=== PATIENT | female | born 1990 | race Hispanic/Latino ===

== ENCOUNTER 2018-02-08 22:39 | Emergency (ER) | payer SELFPAY ==
[2018-02-08 23:18] LABS: BASOPHILS % (AUTO) 0.6 % (0.0-5.0); HEMATOCRIT 36.9 % (36-48); LYMPHOCYTES % (AUTO) 31.8 % (21.0-51.0); MEAN CORPUSCULAR HEMOGLOBIN 26.6 pg (27.0-33.0); MEAN CORPUSCULAR HGB CONC 33.6 g/dL (32.0-36.0); MEAN CORPUSCULAR VOLUME 78.9 fL (79-99); MONOCYTES % (AUTO) 5.3 % (3.0-13.0); NEUTROPHILS % (AUTO) 61.3 % (40.0-77.0); PLATELET COUNT (AUTO) 271 K/uL (130-400); RED BLOOD CELL COUNT(AUTO) 4.68 MIL/uL (4.00-5.50); RED CELL DISTRIBUTION WIDTH 13.4 % (11.0-15.5); WHITE BLOOD COUNT (AUTO) 7.7 K/uL (4.8-10.8)
[2018-02-08 23:24] LABS: HCG,QUAL RESULT NEGATIVE (NEGATIVE)
[2018-02-08 23:27] LABS: AMPHET/METH SCREEN,URINE NEGATIVE (NEGATIVE); BARBITURATE SCREEN, URINE NEGATIVE (NEGATIVE); BENZODIAZEPINES SCREEN,URINE NEGATIVE (NEGATIVE); CANNABINOID SCREEN,URINE NEGATIVE (NEGATIVE); COCAINE SCREEN,URINE NEGATIVE (NEGATIVE); OPIATE SCREEN,URINE NEGATIVE (NEGATIVE); PHENCYCLIDINE SCREEN,URINE NEGATIVE (NEGATIVE)
[2018-02-08 23:29] LABS: CREATININE 0.6 mg/dL (0.5-1.5); POTASSIUM 3.5 mmol/L (3.5-5.1)
== END 2018-02-09 00:21 | disposition home or self-care (01) ==
LOC: EDH 22:39
DX: R20.2 Paresthesia of skin (principal)
CPT/HCPCS: 36415; 80048; 80305; 81025; 85025

== ENCOUNTER 2018-05-20 16:58 | Emergency (ER) | payer BC, SELFPAY ==
[2018-05-20] MEDS ORDERED: ONDANSETRON ODT 4 MG TAB ONE (17:28)
[2018-05-20 18:10] LABS: BILIRUBIN,URINE Negative (NEGATIVE); COLOR,URINE Yellow (YELLOW); GLUCOSE, URINE (UA) Negative (NEGATIVE); KETONES,URINE Trace mg/dL (NEGATIVE); LEUKOCYTE ESTERASE ,URINE Small (NEGATIVE); NITRATE,URINE Negative (NEGATIVE); OCCULT BLOOD,URINE Negative (NEGATIVE); PROTEIN,URINE Negative (NEGATIVE)
[2018-05-20 18:11] LABS: HCG,QUAL RESULT NEGATIVE (NEGATIVE)
[2018-05-20 18:12] LABS: APPEARANCE,URINE Hazy (CLEAR)
[2018-05-20 18:52] LABS: BACTERIA,URINE Rare /HPF (None Seen); MUCUS,URINE Many LPF (None Seen); RBC,URINE None Seen /HPF (0-1); WBC,URINE 0-1 /HPF (0-1)
== END 2018-05-20 18:41 | disposition home or self-care (01) ==
LOC: EDH 16:58
DX: N39.0 Urinary tract infection, site not specified (principal)
CPT/HCPCS: 81001; 81025

== ENCOUNTER 2018-08-05 15:37 | Emergency (ER) | payer BC, MEDICAID ==
[2018-08-05 16:11] LABS: BASOPHILS % (AUTO) 0.8 % (0.0-5.0); EOSINOPHILS % (AUTO) 1.4 % (0.0-8.0); HEMATOCRIT 33.3 % (36-48); LYMPHOCYTES % (AUTO) 26.1 % (21.0-51.0); MEAN CORPUSCULAR HEMOGLOBIN 26.8 pg (27.0-33.0); MEAN CORPUSCULAR HGB CONC 33.5 g/dL (32.0-36.0); MEAN CORPUSCULAR VOLUME 79.8 fL (79-99); MONOCYTES % (AUTO) 5.6 % (3.0-13.0); NEUTROPHILS % (AUTO) 66.1 % (40.0-77.0); NUCLEATED RED BLOOD CELLS 0.1 % (0.0-0.19); PLATELET COUNT (AUTO) 229 K/uL (130-400); RED BLOOD CELL COUNT(AUTO) 4.17 MIL/uL (4.00-5.50); RED CELL DISTRIBUTION WIDTH 14.2 % (11.0-15.5); WHITE BLOOD COUNT (AUTO) 6.2 K/uL (4.8-10.8)
[2018-08-05 16:53] LABS: APPEARANCE,URINE Clear (CLEAR); BILIRUBIN,URINE Negative (NEGATIVE); COLOR,URINE Yellow (YELLOW); GLUCOSE, URINE (UA) Negative (NEGATIVE); KETONES,URINE Negative (NEGATIVE); LEUKOCYTE ESTERASE ,URINE Small (NEGATIVE); NITRATE,URINE Negative (NEGATIVE); OCCULT BLOOD,URINE Negative (NEGATIVE); PROTEIN,URINE Negative (NEGATIVE)
[2018-08-05 17:08] LABS: BACTERIA,URINE Rare /HPF (None Seen); RBC,URINE None Seen /HPF (0-1); SQUAMOUS EPITHELIAL CELL,UR 0-2 /HPF (0-2)
== END 2018-08-05 17:58 | disposition home or self-care (01) ==
LOC: EDH 15:37
DX: O20.0 Threatened abortion (principal); Z3A.01 Less than 8 weeks gestation of pregnancy
CPT/HCPCS: 36415; 76801; 81001; 84702; 85025

== ENCOUNTER 2018-11-27 22:45 | Emergency (ER) | payer MEDICAID | END 2018-11-27 23:29 | disposition home or self-care (01) | LOC: EDH 22:45 | DX: O26.892 Other specified pregnancy related conditions, second trimester (principal); H00.015 Hordeolum externum left lower eyelid; Z79.899 Other long term (current) drug therapy; Z3A.21 21 weeks gestation of pregnancy ==

== ENCOUNTER → 2020-05-08 13:00 | Inpatient (IN) | payer MEDICAID ==
[2020-05-06] MEDS: LACTATED RINGERS 1000ML 1,000 ML IV PRN (23:29)
[2020-05-06 23:36] LABS: HEMATOCRIT 29.8 % (36-48); MEAN CORPUSCULAR HEMOGLOBIN 23.7 pg (27.0-33.0); MEAN CORPUSCULAR HGB CONC 31.2 g/dL (32.0-36.0); MEAN CORPUSCULAR VOLUME 75.8 fL (79-99); PLATELET COUNT (AUTO) 208 K/uL (130-400); RED BLOOD CELL COUNT(AUTO) 3.93 MIL/uL (4.00-5.50); RED CELL DISTRIBUTION WIDTH 13.9 % (11.0-15.5); WHITE BLOOD COUNT (AUTO) 7.7 K/uL (4.8-10.8)
[2020-05-06 23:38] LABS: APPEARANCE,URINE Clear (CLEAR); BILIRUBIN,URINE Negative (NEGATIVE); COLOR,URINE Yellow (YELLOW); GLUCOSE, URINE (UA) Negative (NEGATIVE); KETONES,URINE Trace mg/dL (NEGATIVE); LEUKOCYTE ESTERASE ,URINE Moderate (NEGATIVE); NITRATE,URINE Negative (NEGATIVE); OCCULT BLOOD,URINE Trace (NEGATIVE); PROTEIN,URINE Negative (NEGATIVE)
[2020-05-06 23:52] LABS: RBC,URINE 0-1 /HPF (0-1)
[2020-05-06 23:53] LABS: BACTERIA,URINE Few /HPF (None Seen); SQUAMOUS EPITHELIAL CELL,UR 0-2 /HPF (0-2)
[2020-05-07 00:39] LABS: PLATELET MORPHOLOGY LARGE PLTS PRESENT
[2020-05-07] MEDS: LACTATED RINGERS 1000ML 1,000 ML IV PRN (04:58)
[2020-05-07 13:56] VITALS: BP 117/67
[2020-05-07] MEDS: IBUPROFEN 600 MG TABLET PO PRN (14:09)
[2020-05-07 15:50] VITALS: BP 118/79
[2020-05-07 19:38] VITALS: BP 98/61
[2020-05-07] MEDS: DOCUSATE SODIUM 100 MG CAP PO SCH (20:43)
[2020-05-07 23:43] VITALS: BP 98/57
[~2020-05-08] VITALS: Ht 165.1 cm; Wt 87.1 kg
[2020-05-08 03:44] VITALS: BP 115/70
[2020-05-08] MEDS: IBUPROFEN 600 MG TABLET PO PRN (04:17)
[2020-05-08 06:46] LABS: HEMATOCRIT 26.1 % (36-48); MEAN CORPUSCULAR VOLUME 77.4 fL (79-99); RED BLOOD CELL COUNT(AUTO) 3.37 MIL/uL (4.00-5.50); WHITE BLOOD COUNT (AUTO) 7.2 K/uL (4.8-10.8)
[2020-05-08 07:44] VITALS: BP 109/54
[2020-05-08 08:15] LABS: HEPATITIS Bs ANTIGEN SCREEN P Negative (Negative)
[2020-05-08] MEDS: DOCUSATE SODIUM 100 MG CAP PO SCH (08:51)
[2020-05-08 11:49] VITALS: BP 122/69
[~2020-05-08 13:00] MED LIST: ACETAMINOPHEN 325 MG TAB PO PRN; ACETAMINOPHEN-CODEINE 300/30MG TAB PO PRN; BENZOCAINE/LANOLIN/ALOE VERA 60 ML AEROSOL TP PRN; BUTORPHANOL TARTRATE 2 MG/ML IVP PRN; DIPH,PERTUSS(ACELL),TET VAC/PF 0.5 ML VIAL IM PRN; EPHEDRINE SULFATE 50 MG/ML AMPULE IVP PRN; LACTATED RINGERS 500 ML 500 ML IV PRN; LANOLIN 30GM OINTMENT TP PRN; MEASLES/MUMPS/RUBELLA VACCINE, LIVE 0.5 ML/VIAL SQ PRN; MEPERIDINE-PF 50 MG/ML SYG IVP PRN; NALOXONE HCL 0.4 MG/1 ML ML IV PRN; OXYTOCIN-LR 20 UNITS/1000 ML 1,000 ML IV SCH; PREN-154 PO; PROMETHAZINE HCL 25 MG/ML 1ML AMPULE IM PRN; ROPIVACAINE 0.2% 100ML VIAL 100 ML EP SCH; WITCH HAZEL 1 PAD TP PRN
== END | disposition home or self-care (01) | DRG 560 ==
LOC: LDH 05-06 22:17 → WSH 05-07 13:50
PROVIDERS: ADMIT Obstetrics & Gynecology; ATTEND Obstetrics & Gynecology
PROC: 10E0XZZ Delivery of Products of Conception, External Approach (ICD-10-PCS; principal; 2020-05-07)
PROC: 3E033VJ Introduction of Other Hormone into Peripheral Vein, Percutaneous Approach (ICD-10-PCS; 2020-05-07)
PROC: 3E0234Z Introduction of Serum, Toxoid and Vaccine into Muscle, Percutaneous Approach (ICD-10-PCS; 2020-05-07)
PROC: 10907ZC Drainage of Amniotic Fluid, Therapeutic from Products of Conception, Via Natural or Artificial Opening (ICD-10-PCS; 2020-05-07)
PROC: 3E0134Z Introduction of Serum, Toxoid and Vaccine into Subcutaneous Tissue, Percutaneous Approach (ICD-10-PCS; 2020-05-07)
DX: O80 Encounter for full-term uncomplicated delivery (principal); Z3A.39 39 weeks gestation of pregnancy; Z37.0 Single live birth; Z23 Encounter for immunization; Z88.8 Allergy status to other drugs, medicaments and biological substances
CPT/HCPCS: 36415; 81001; 85027; 86592; 86850; 86900; 86901; 87088; 87340; 90715; A4351; G0378; J0595; J2590; J7120